=== PATIENT | female | born 1995 | race Two or more races ===

== ENCOUNTER 2024-10-22 11:26 | Emergency (ER) | payer MEDICAID, SELFPAY ==
[2024-10-22 11:30] VITALS: PULSE 99; O2SAT 98; BMI 22.8
[2024-10-22 11:32] VITALS: BP 123/75; PULSE 96; RESP 16; TEMP 37.1; O2SAT 97; BMI 22.8
--- NOTE | 2024-10-22 11:44 | EDNOTE_ITS ---
<Statement entered by Millicent Orozco MD - 10/22/24 17:06> As co-signing physician, I was present and available for consult prn. I concur with the plan and care as documented by the midlevel provider. ED General RME/HPI General Chief complaint: Anxiety Stated complaint: ANXIETY Time Seen by Provider: 10/22/24 11:39 Arrival date/time: 10/22/24 11:26 CC: Chest pain anxiety HPI patient presents to the ER via EMS who report to the nurse that the patient was nonresponsive but responded immediately to sternal rub. She was transported with stable vital signs. Patient is currently tachycardic emotional, stating that she has chest pain when she takes a deep breath. Patient is currently on her menses and complains that she also has painful urination. No other specific complaints. Related Data Previous Rx's ?Medication ?Instructions ?Recorded ibuprofen 400 mg tablet 400 mg PO QID PRN pain #20 t abs 06/23/18 cephalexin 500 mg capsule 500 mg PO Q8H #20 caps 01/11 meloxicam 7.5 mg tablet 7.5 mg PO QDAY #14 tabs 06/15 09/07 Allergies Allergy/AdvReac Type Severity Reaction Status Date / Time No Known Allergies Allergy Verified 06/26/23 12:53 Review of Systems Review of Systems Narrative Review of Systems: GEN: No fever, no chills, no weight loss EYES: No discharge, no visual changes, no pain HEENT: No ear pain, no congestion, no sore throat PULM: No shortness of breath, no cough, no congestion CV: No chest pain, no dyspnea on exertion, no palpitations GI: No nausea, no vomiting, no diarrhea, no pain, no constipation : No frequency, no urgency, no dysuria MUSC/SKEL: No joint pain, no back pain SKIN: No rash PSYCH: No hallucinations, no depression HEME/LYMPH: No easy bleeding or bruising tendencies NEURO: No weakness, no headache Past Medical History Past Medical History CARDIAC: Negative Congestive Heart Failure RESPIRATORY: Negative Chronic Obstructive Pulmonary Disease (COPD) GENITOURINARY: Negative Renal Disease ENDOCRINE: Negative Diabetes Mellitus Type 1 or Diabetes Mellitus Type 2 Social History SMOKING STATUS: Never smoker ED Exam Narrative Physical exam: [General: Tearful anxious but not in any acute distress Head normocephalic HEENT: Within acceptable limits Neck is supple nontender Chest equal chest rise global anterior chest tenderness with palpation. Respiratory: Clear to auscultation no wheezes crackles or rubs CV: Rate rhythm is regular no murmurs rubs or clicks Abdomen is distended secondary to body habitus soft nontender no masses positive bowel sounds all 4 quadrants Back: No CVA tenderness no spinous process tenderness from cervical spine thoracic and lumbar spine Skin: Intact no petechiae rash induration ulceration or crepitus Extremities: Moving all extremity against resistance cap refill less than 2 seconds neurosensory intact Neuro: Awake alert oriented x3 Glascow coma 15 no focal deficits] Course Course Course Narrative: Initial nursing screen the patient states she has had intermittent thoughts of harming herself but none right now, then the patient changed her story. And now states she has thoughts of suicide now without plan. Patient denies homicidal ideation. Patient seen by crisis management and flatly denies all suicidal ideation. At this time patient be discharged home with anxiety and chest pain. Quality Measures none Orders Category Date Time Status CBC Stat Lab 10/22/24 13:16 Completed CMP [Comprehensive Metabolic Panel] Stat Lab 10/22/24 13:16 Completed Drug Screen,Urine Stat Lab 10/22/24 12:19 Completed HCG Qualitative,Urine Stat Lab 10/22/24 12:19 Completed Urinalysis, C/S if Indicated Stat Lab 10/22/24 12:19 Completed Urine Culture Stat Lab 10/22/24 12:19 Received Ketorolac Inj [Toradol Inj] Med 10/22/24 11:43 Discontinued 15 mg IVP X1 ONE LORazepam [Ativan Inj] Med 10/22/24 11:43 Discontinued 1 mg IVP X1 ONE Vital Signs Vital signs: Vital Signs Temperature 98.8 F 10/22/24 11:32 Pulse Rate 96 10/22/24 11:32 Respiratory Rate 16 10/22/24 11:32 Blood Pressure 123/75 10/22/24 11:32 Pulse Oximetry (%) 97 10/22/24 11:32 Oxygen Delivery Method Room Air 10/22/24 11:32 [facility] Patient data External records reviewed:: [facility] previous records and EMS form Clinical information provided by:: patient and EMS Social determinants that could affect healthcare access:: none Patient has the following chronic illnesses:: Anxiety How is presenting disease/condition affected by chronic disease/condition?: e xacerbated by Evaluation data The following diagnostics were reviewed and interpreted by me:: lab results Lab and/or radiology exams considered but not ordered:: CBC shows no acute leukocytosis anemia thrombocytopenia CMP shows no significant electrolyte imbalances renal impairment transaminitis or T. bili elevation Urine is blood secondary to menses UDS is negative. Urine is negative. Interpretation Summary: Patient declared herself is suicidal without a specific plan although she initially stated she was suicidal in the past and not now then she changed her story stating she is currently suicidal. Patient is cleared for crisis evaluation. Medications Medications considered but not ordered:: None Medication administrations:: Medication Administration History Discontinued Medications Ketorolac Tromethamine (Ketorolac Inj 30 Mg/Ml Vial) 15 mg IVP X1 ONE Stop: 10/22/24 11:44 Last Admin: 10/22/24 11:54 Dose: 15 mg Documented By: KEON Lorazepam (Lorazepam 2 Mg/Ml Vial) 1 mg IVP X1 ONE Stop: 10/22/24 11:44 Last Admin: 10/22/24 11:54 Dose: 1 mg Documented By: KEON None Consultations Consultation(s) initiated? (list below): No Diagnosis Differential Diagnosis ED Complaint MDM: Anxiety, panic attack Most likely diagnosis given after review of the tests above:: Anxiety chest pain Admission Indicated Admission indicated?: not indicated Explain why admission is indicated or not indicated:: Stabilized for discharge Admission Request Was there a request for admission?: No Disposition Plan Disposition Plan: Discharge Discharge Attestation Discharge Attestation: The patient and all family members were given an opportunity to ask questions and understood the discharge instructions. Discharge instructions specifically effects, indications for sooner follow up or return to the emergency department, and the expected course of current diagnosis. Patient condition: Stable Medical Decision Making Differential Diagnosis Differential Diagnosis: Anxiety, panic attack Lab Data 10/22/24 13:16 10/22/24 13:16 Labs: Lab Results 10/22/24 10/22/24 Range/Units 12:19 13:16 WBC 9.4 (3.6-11.0) Thou/mm3 RBC 4.60 (4.00-5.20) Miln/mm3 Hgb 13.4 (12.0-16.0) g/dL Hct 39.6 (36.0-46.0) % MCV 86 (80-100) fL MCH 29.1 (25.0-35.0) pg MCHC 33.8 (31.0-37.0) g/dl RDW Std Deviation 40.3 (36.4-46.3) fL Plt Count 336 (140-440) Thou/mm3 Neut % (Auto) 86 H (37-80) % Lymph % (Auto) 9 L (10-50) % [place] % (Auto) 5 (0-12) % Eos % (Auto) 0 (0-10) % Baso % (Auto) 0 (0-2.5) % Neut # (Auto) 8.0 H (1.8-7.7) Thou/mm3 Lymph # (Auto) 0.9 L (1.0-4.8) Thou/mm3 [place] # (Auto) 0.4 (0.0-0.8) Thou/mm3 Eos # (Auto) 0.0 (0.0-0.5) Thou/mm3 Baso # (Auto) 0.0 (0.0-0.2) Thou/mm3 Immature Gran # (Auto) 0.03 H (0.00-0.00) Thou/mm3 Absolute Nucleated RBC 0.00 (0.00-0.00) Thou/mm3 Immature Gran % 0 (0-0) % Nucleated RBC % 0 (0) /100 WBC Sodium 143 (136-145) mMol/L Potassium 3.8 (3.4-5.1) mMol/L Chloride 108 H (98-107) mMol/L Carbon Dioxide 26.8 (20.0-31.0) mMol/L Anion Gap 8 (7-16) BUN 11 (9-23) mg/dL Creatinine 0.7 (0.6-1.3) mg/dL Estim Creat Clear Calc 82.3 (>60) mL/min eGFR > 60 (60 - ) See Note BUN/Creatinine Ratio 16 (12-20) Ratio Glucose 115 H (74-106) mg/dL Calculated Osmolality 285 (275-295) Calcium 9.6 (8.3-10.6) mg/dL Corrected Calcium 9.6 (8.5-10.1) mg/dL Total Bilirubin 0.4 (0.3-1.2) mg/dL AST 15 (0-34) U/L ALT 9 L (10-49) U/L Alkaline Phosphatase 58 (46-116) U/L Total Protein 7.2 (5.7-8.2) gm/dL Albumin 4.2 (3.5-5.0) gm/dL Globulin 3.0 (2.3-3.5) gm/dL Albumin/Globulin Ratio 1.4 (1.2-2.2) Ur Collection Type Clean Catch Urine Color Lt-Brown A (Lt Yel-Yel) Urine Clarity Hazy (Clear/Hazy) Urine pH 7.5 H (5.0-7.0) Ur Specific Thompson 1.008 (1.001-1.035) Urine Protein Negative (Neg - Trace) Urine Glucose (UA) Negative (Negative) Urine Ketones Negative (Negative) Urine Blood 3+ A (Negative) Urine Nitrite Negative (Negative) Urine Bilirubin Negative (Negative) Urine Urobilinogen (Auto) Negative (0.0-1.0) mg/dL Ur Leukocyte Esterase Negative (Negative) Urine RBC 1208 H (0-3) /hpf Urine WBC 14 H (0-5) /hpf Ur Squamous Epith Cells 3 (0-5) /hpf Urine Bacteria None (None) Ur Culture Indicated? Yes Urine HCG, Qual Negative Urine Opiates Screen Negative (Negative) Urine Fentanyl Screen Negative (Negative) Ur Barbiturates Screen Negative (Negative) U Amphetamin/Meth Scrn Negative (Negative) U Benzodiazepines Scrn Negative (Negative) U Cocaine Metab Screen Negative (Negative) U Marijuana (THC) Screen Negative (Negative) Discharge Plan Plan Patient Disposition: HOME (Self Care) Prescriptions/Referrals Prescriptions/Med Rec: No Action ibuprofen 400 mg tablet 400 mg PO QID PRN (Reason: pain) Qty: 20 0RF cephalexin 500 mg capsule 500 mg PO Q8H Qty: 20 0RF meloxicam 7.5 mg tablet 7.5 mg PO QDAY Qty: 14 0RF Referrals: Robert Villarreal PA-C [Primary Care Provider] - In 1 week Problem List Clinical Impression: Anxiety, Chest pain Patient/Caregiver Discharge Instructions Education Materials: ED Anxiety Reaction, ED Chest Pain, Noncardiac Print Language: Mexican Stand Alone Forms: Lucia Award Info., Work/School Release, Patient Portal Info Letter PA/ALEXIA Supervising Physician PA/AIRPLANE ELECTRICIAN Supervising Physician: Parish Gibbs
[2024-10-22] MEDS: KETOROLAC INJ 30 MG/ML VIAL 15 MG IVP (11:54)
[2024-10-22] MEDS: LORazepam 2 MG/ML VIAL 1 MG IVP (11:54)
[2024-10-22 12:09] VITALS: BP 108/71; PULSE 88; RESP 18; TEMP 36.7; O2SAT 96
[2024-10-22 12:22] LABS: Collection Type, Urine Clean Catch
--- NOTE | 2024-10-22 12:34 | PC.NURSE ---
Pt initally denied having active suicidal thoughts during screening, but now is stating she is currently having suicidal thoughts
[2024-10-22 12:37] LABS: Bilirubin,Urine Negative (Negative); Blood,Urine 3+ (Negative); Color,Urine Lt-Brown (Lt Yel-Yel); Glucose, Urine Negative (Negative); Ketones,Urine Negative (Negative); Leukocyte Esterase,Urine Negative (Negative); Nitrite,Urine Negative (Negative); PH,Urine 7.5 (5.0-7.0); Protein,Urine Negative (Neg - Trace); RBC,Urine 1208 /hpf (0-3); Specific Gravity,Urine 1.008 (1.001-1.035); Squamous Epithelial Cell,Urine 3 /hpf (0-5); Urobilinogen,Urine Negative mg/dL (0.0-1.0); WBC,Urine 14 /hpf (0-5)
[2024-10-22 13:08] LABS: HCG Qualitative,Urine Negative
[2024-10-22 13:15] LABS: Clarity,Urine Hazy (Clear/Hazy); Culture Indicated,Urine Yes
[2024-10-22 13:20] LABS: Amphetamine/Methamp Scrn,U Negative (Negative); Barbiturate Screen,Urine Negative (Negative); Benzodiazepines Screen,Urine Negative (Negative); Benzoylecgonine Screen, Ur Negative (Negative); Fentanyl Screen,Urine Negative (Negative); Opiate Screen,Urine Negative (Negative); THC Screen,Urine Negative (Negative)
[2024-10-22 13:27] LABS: Basophils % (Auto) 0 % (0-2.5); Eosinophils % (Auto) 0 % (0-10); Hematocrit 39.6 % (36.0-46.0); Hemoglobin 13.4 g/dL (12.0-16.0); Immature Granulocytes % (Auto) 0 % (0-0); Immature Granulocytes Auto 0.03 Thou/mm3 (0.00-0.00); Lymphocytes # (Auto) 0.9 Thou/mm3 (1.0-4.8); Lymphocytes % (Auto) 9 % (10-50); Mean Corpuscular HGB Conc 33.8 g/dl (31.0-37.0); Mean Corpuscular Hemoglobin 29.1 pg (25.0-35.0); Mean Corpuscular Volume 86 fL (80-100); Monocytes # (Auto) 0.4 Thou/mm3 (0.0-0.8); Monocytes % (Auto) 5 % (0-12); Neutrophils % (Auto) 86 % (37-80); Nucleated Red Blood Cell % 0 /100 WBC (0); Platelet Count 336 Thou/mm3 (140-440); RDW Standard Deviation 40.3 fL (36.4-46.3); White Blood Count 9.4 Thou/mm3 (3.6-11.0)
[2024-10-22 13:55] LABS: Alanine Aminotransferase 9 U/L (10-49); Albumin, Serum 4.2 gm/dL (3.5-5.0); Albumin/Globulin Ratio 1.4 (1.2-2.2); Alkaline Phosphatase 58 U/L (46-116); Anion Gap 8 (7-16); Aspartate Amino Transferase 15 U/L (0-34); BUN/Creatinine Ratio 16 Ratio (12-20); Bilirubin,Total 0.4 mg/dL (0.3-1.2); Blood Urea Nitrogen 11 mg/dL (9-23); Calcium 9.6 mg/dL (8.3-10.6); Calcium (Corrected) 9.6 mg/dL (8.5-10.1); Carbon Dioxide 26.8 mMol/L (20.0-31.0); Chloride 108 mMol/L (98-107); Creatinine (Component) 0.7 mg/dL (0.6-1.3); Estimated Creatinine Clearance 82.3 mL/min (>60); Glucose 115 mg/dL (74-106); Osmolality,Calculated 285 (275-295); Potassium 3.8 mMol/L (3.4-5.1); Sodium 143 mMol/L (136-145); Total Protein 7.2 gm/dL (5.7-8.2); eGFR > 60 See Note
[2024-10-22 14:18] VITALS: BP 113/70; PULSE 109; RESP 15; TEMP 36.7; O2SAT 97
--- NOTE | 2024-10-22 14:32 | PC.CC ---
Patient is a 29 yea-old female who presents to the hospital for anxiety. Darlin HILL was consulted by REJI Horton for mental health evaluation upon the patient making suicidal statements. Darlin HILL introduced self, role, and reason for visit to the patient and her , Favian Cota who was at bedside. Patient provided consent for her to remain in the room during assessment. Patient was pleasant; her behavior appeared disinhibited with flat affect. Patient?s thought process was linear and organized. No signs of delusions, paranoid or V/h. Patient reports she has struggled with panic attacks and generalized anxiety for multiple years. Patient reports nothing that she is aware of triggered her anxiety and panic attack today. Patient stated, My anxiety comes and goes. Patient reports she was diagnosed with stomach cancer in February of 2024. Patient is receiving cancer treatment in [place] at [facility]. Patient is able to ambulate independently and completes her own ADLs. At the time of encounter with this senior copywriter patient denied suicidal and homicidal ideations; visual and auditory hallucinations. Patient denied past suicide attempts and being placed on a 5150-hold. Patient is not connected to outpatient mental health services and has never received treatment for her anxiety and panic disorder. Collateral from patient's , Favian. He reports that patient has been receiving treatment for her cancer since February of 2024. Patient's mother, Marissa Leach has been assisting the patient during his work hours. Patient's reports he has not seen any behavior changes in the patient.
--- NOTE | 2024-10-22 14:52 | PC.CC ---
Patient is a 29 yea-old female who presents to the hospital for anxiety. ASWDarlin was consulted by REJI Horton for mental health evaluation upon the patient making suicidal statements. ASWDarlin and FRIT COATER Student, Dawna introduced self, role, and reason for visit to the patient and her , Favian Cota who was at bedside. Patient provided consent for student to remain in room during assessment. Patient provided consent for her to remain in the room during assessment. Patient was pleasant; her behavior appeared disinhibited with flat affect. Patient?s thought process was linear and organized. No signs of delusions, paranoid or V/h. Patient reports she has struggled with panic attacks and generalized anxiety for multiple years. Patient reports nothing that she is aware of triggered her anxiety and panic attack today. Patient stated, My anxiety comes and goes. Patient reports she was diagnosed with stomach cancer in February of 2024. Patient is receiving cancer treatment in [place] at [facility]. Patient is able to ambulate independently and completes her own ADLs. At the time of encounter with this health technical writer patient denied suicidal and homicidal ideations; visual and auditory hallucinations. Patient denied past suicide attempts and being placed on a 5150-hold. Patient is not connected to outpatient mental health services and has never received treatment for her anxiety and panic disorder. Patient scored low-risk on the [place] Screening. Collateral from patient's , Favian. He reports that patient has been receiving treatment for her cancer since February of 2024. Patient's mother, Marissa Leach has been assisting the patient during his work hours. Patient's reports he has not seen any behavior changes in the patient. ASW discussed with patient and safety planning. ASW informed the patient and that if safety plan was established the importance of it since patient had made suicidal statements to the provider. Patient and report they are open safety planning with this health technical writer. Upon clinical consultation with Edna SPENCER the patient does not meet criteria to be placed on a 5150-hold. Safety plan to be established with patient and Favian. ASW established safety plan with patient and . The safety plan is for patient's to provide extra supervision for the next 72 hours, for to lock all medications and sharps, there are no firearms in the home according to . ASW referred patient to [facility] and scheduled appointment for October 24, 2024 at 09:00 am.
--- NOTE | 2024-10-22 15:10 | PC.CC ---
Patient is a 29 yea-old female who presents to the hospital for anxiety. Darlin HILL was consulted by REJI Horton for mental health evaluation upon the patient making suicidal statements. Darlin HILL and REAL ESTATE OFFICE MANAGER Student, Dawna introduced self, role, and reason for visit to the patient and her , Favian Cota who was at bedside. Patient provided consent for REAL ESTATE OFFICE MANAGER student to remain in the room during assessment. Patient provided consent for her to remain in the room during assessment. Patient was pleasant; her behavior appeared disinhibited with flat affect. Patient?s thought process was linear and organized. No signs of delusions, paranoid or V/h. Patient reports she has struggled with panic attacks and generalized anxiety for multiple years. Patient reports nothing that she is aware of triggered her anxiety and panic attack today. Patient stated, My anxiety comes and goes. Patient reports she was diagnosed with stomach cancer in February of 2024. Patient is receiving cancer treatment in [place] at [facility]. Patient is able to ambulate independently and completes her own ADLs. At the time of encounter with this singer songwriter patient denied suicidal and homicidal ideations; visual and auditory hallucinations. Patient denied past suicide attempts and being placed on a 5150-hold. Patient is not connected to outpatient mental health services and has never received treatment for her anxiety and panic disorder. Patient scored Low Risk on [place] Screening. Collateral from patient's , Favian. He reports that patient has been receiving treatment for her cancer since February of 2024. Patient's mother, Marissa Leach has been assisting the patient during his work hours. Patient's reports he has not seen any behavior changes in the patient. ASW discussed safety planning with patient and her . Patient reports she is open to safety planning with . ASW discussed seriousness of safety plan due to suicidal statements made by patient to provider. Upon clinical consultation with Edna SPENCER the patient does not meet criteria for 5150-hold. Darlin HILL established safety plan with patient and , Favian Cota. Safety plan established: patient's to provide supervision for the next 72 hours, to ensure all medications and sharps are locked, there are no firearms in the home. ASW referred patient to outpatient mental health services at [facility] and scheduled appointment for October 24, 2024 at 09:00 am. Patient's to ensure patient attends her appointment. ASW provided [facility] Resource Guide and Warmline Number. ASW provided update of safety plan to turning sander operator Katiuska, provider PROTECTIVE SERVICE SPECIALIST Clifford, and bedside RN Teodoro.
== END 2024-10-22 16:10 | disposition home or self-care (01) ==
PROVIDERS: Registered Nurse General Practice; Emergency Provider Emergency Medicine; PCP Physician Assistant
DX: F41.9 Anxiety disorder, unspecified (principal); R45.851 Suicidal ideations; R07.9 Chest pain, unspecified; R30.9 Painful micturition, unspecified; Z91.51 Personal history of suicidal behavior
CPT/HCPCS: 36415; 80053; 80307; 81001; 81025; 85025; 87086; 90839; 96127; 96374; 96375; 99284; J1885; J2060